=== PATIENT | female | born 1930 | race Caucasian/White ===

== ENCOUNTER 2017-02-14 20:26 | Emergency (ER) | payer MEDICARE, OTHER ==
[2017-02-14 20:34] VITALS: BP 158/92
--- NOTE | 2017-02-14 20:40 | ED Physician Documentation ---
PD HPI LOWER EXT INJURY - Stated complaint Stated Complaint: KNEE PX RIGHT - Chief complaint Chief Complaint: Ext Problem - History obtained from History obtained from: Patient - History of Present Illness PD HPI LOW EXT INJURY LOCATION: Right, Knee Type of injury: Fall (3 days ago, with some local pain and abrasion on right knee. Was only hurting a little. Then was sitting on computer desk today, with knee against a flat back part of the desk, and noted swelling of the knee. Now hurts more.) Timing - onset: How many days ago (3) Timing - details: Gradual onset Worsened by: Palpating Associated symptoms: Swelling (just today). No: Weakness, Numbness Similar symptoms before: Has not had sx before Review of Systems Constitutional: denies: Fever, Chills Skin: reports: Abrasion (s). denies: Laceration (s) Neurologic: denies: Focal weakness, Numbness PD PAST MEDICAL HISTORY - Past Medical History Cardiovascular: Hypertension Respiratory: Sleep apnea, CPAP use - Past Surgical History Past Surgical History: Yes Ortho: Shoulder arthroplasty - Present Medications Home Medications: Ambulatory Orders Medication Instructions Recorded Confirmed oxyCODONE [Roxicodone] 5 - 10 mg PO Q4-6H PRN #120 tablet 07/12/15 02/14/17 Clopidogrel [Plavix] 75 mg PO DAILY 02/14/17 02/14/17 Ferrous Gluconate 324 mg PO DAILY 02/14/17 02/14/17 Gabapentin 600 mg PO DAILY PM 02/14/17 02/14/17 Levothyroxine [Synthroid] 50 mcg PO DAILY 02/14/17 02/14/17 Lisinopril 10 mg PO DAILY 02/14/17 02/14/17 Magnesium 250 mg PO DAILY 02/14/17 02/14/17 [place]-3S/Dha/Epa/Fish Oil [Fish 1 each PO DAILY 02/14/17 02/14/17 Oil 1,200 mg Softgel] Potassium Chloride [Micro-K] 10 meq PO DAILY 02/14/17 02/14/17 Sertraline [Zoloft] 100 mg PO DAILY 02/14/17 02/14/17 amLODIPine [Norvasc] 2.5 mg PO ONCE 02/14/17 02/14/17 - Allergies Allergies/Adverse Reactions: Allergies Allergy/AdvReac Type Severity Reaction Status Date / Time dexamethasone Allergy Unknown Verified 02/14/17 20:54 levofloxacin [From Levaquin] Allergy Unknown Verified 02/14/17 20:54 - Social History Does the pt smoke?: No Smoking Status: Never smoker Does the pt drink ETOH?: No Does the pt have substance abuse?: No - Immunizations Immunizations are current?: Yes PD ED PE NORMAL - Vitals Vital signs reviewed: Yes - General General: Alert and oriented X 3, Well developed/nourished - Derm Derm: Normal color, Warm and dry - Extremities Extremities: Other (abrasion on infrapatellar area without purulence, redness, nor warmth. There is bursal effusion but good ROM of the knee including full extension. No knee joint effusion per se. ) - Neuro Neuro: No motor deficit, No sensory deficit Results - Vitals Vitals: Vital Signs - 24 hr 02/14/17 20:32 Temperature 37.0 C Heart Rate 81 Respiratory 18 Rate Blood Pressure 158/92 H O2 Saturation 98 Oxygen O2 Source Room air - Rads (name of study) knee Radiology: Prelim report reviewed, EMP read contemporaneously (arthritic changes ; no fracture) PD MEDICAL DECISION MAKING - ED course Complexity details: considered differential (some bursal effusion without redness nor warmth. She has abrasion on knee, but does not seem infected. did not see need for tapping it at this point. ), d/w patient Departure - Departure Disposition: 01 Home, Self Care Clinical Impression: Effusion of bursa of knee Qualifiers: Laterality: right Qualified Code(s): M25.461 - Effusion, right knee Knee contusion Qualifiers: Encounter type: initial encounter Laterality: right Qualified Code(s): S80.01XA - Contusion of right knee, initial encounter Condition: Stable Record reviewed to determine appropriate education?: Yes Instructions: ED Bursitis Follow-Up: Bimal Belcher MD [Primary Care Provider] - Comments: Ice to the area periodically. Tylenol 4 times daily for pain as needed. An ru wrap can help reduce the swelling some. The swelling in the bursa is from irritation and it goes down when the irritation improves. Mainly time for that. At this point it does not appear infection, but recheck if you are getting redness/warmth/drainage (a little bit of local redness just over the bursa may be expected but recheck if you get a lot). Discharge Date/Time: 02/14/17 22:05
[2017-02-14] MEDS ORDERED: IBUPROFEN 400 MG TABLET PO STA (20:54)
[2017-02-14] MEDS ORDERED: ACETAMINOPHEN 325 MG TABLET PO STA (20:54)
[2017-02-14] MEDS ORDERED: ACETAMINOPHEN 325 MG TABLET PO ONE (21:11)
--- NOTE | 2017-02-14 21:49 | XRAY Preliminary Report ---
Exam: XR Knee 3 View RT IMPRESSION: No acute right knee bony abnormality. Moderate patellofemoral compartment degenerative ch anges. Likely posttraumatic prepatellar bursitis. [facility] SITE ID: [id number]
--- NOTE | 2017-02-14 21:51 | XRAY Report ---
EXAM: RIGHT KNEE RADIOGRAPHY EXAM DATE: 02/14/2017 09:33 PM. CLINICAL HISTORY: Fell onto right knee, with local swelling bursa. COMPARISON: None. TECHNIQUE: 3 views. FINDINGS: Bones: Normal. No fractures or bone lesions. Joints: Moderate patellofemoral compartment narrowing with marginal spurring. No joint effusion. Soft Tissues: Prepatellar soft tissue swelling. IMPRESSION: No acute right knee bony abnormality. Moderate patellofemoral compartment degenerative ch anges. Likely posttraumatic prepatellar bursitis. [facility] Referring Provider Line: [phone] SITE ID: [id number]
== END 2017-02-14 22:05 | disposition home or self-care (01) ==
LOC: ED 20:26
DX: M25.461 Effusion, right knee (principal); S80.01XA Contusion of right knee, initial encounter; W19.XXXA Unspecified fall, initial encounter; I10 Essential (primary) hypertension
CPT/HCPCS: 73562; 99282; 99283; A9270

== ENCOUNTER 2017-02-18 19:27 | Emergency (ER) | payer MEDICARE, OTHER ==
--- NOTE | 2017-02-18 19:52 | ED Physician Documentation ---
PD HPI LOWER EXT INJURY - Stated complaint Stated Complaint: RT KNEE PX - Chief complaint Chief Complaint: Ext Problem - History obtained from History obtained from: Patient - History of Present Illness PD HPI LOW EXT INJURY LOCATION: Other (She scraped her right knee on the ground couple of weeks ago, she was seen here the other night and had negative x-rays except for degenerative changes. 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 HEENT: None Psych: Depression Musculoskeletal: Osteoporosis Derm: None - Past Surgical History Past Surgical History: Yes Ortho: Shoulder arthroplasty - Present Medications Home Medications: Ambulatory Orders Medication Instructions Recorded Confirmed oxyCODONE [Roxicodone] 5 - 10 mg PO Q4-6H PRN #120 tablet 07/12/15 02/18/17 Clopidogrel [Plavix] 75 mg PO DAILY 02/14/17 02/18/17 Ferrous Gluconate 324 mg PO DAILY 02/14/17 02/18/17 Gabapentin 600 mg PO DAILY PM 02/14/17 02/18/17 Levothyroxine [Synthroid] 50 mcg PO DAILY 02/14/17 02/18/17 Lisinopril 10 mg PO DAILY 02/14/17 02/18/17 Magnesium 250 mg PO DAILY 02/14/17 02/18/17 [place]-3S/Dha/Epa/Fish Oil [Fish 1 each PO DAILY 02/14/17 02/18/17 Oil 1,200 mg Softgel] Potassium Chloride [Micro-K] 10 meq PO DAILY 02/14/17 02/18/17 Sertraline [Zoloft] 100 mg PO DAILY 02/14/17 02/18/17 amLODIPine [Norvasc] 2.5 mg PO ONCE 02/14/17 02/18/17 Sulfamethoxazole/Trimethoprim 1 each PO BID 10 Days 02/18/17 [Sulfamethoxazole-Tmp Ds Tablet] - Allergies Allergies/Adverse Reactions: Allergies Allergy/AdvReac Type Severity Reaction Status Date / Time dexamethasone Allergy Unknown Verified 02/18/17 20:10 levofloxacin [From Levaquin] Allergy Unknown Verified 02/18/17 20:10 - Social History Does the pt smoke?: No Smoking Status: Never smoker Does the pt drink ETOH?: No Does the pt have substance abuse?: No - Immunizations Immunizations are current?: Yes PD ED PE NORMAL - Vitals Vital signs reviewed: Yes - General General: Alert and oriented X 3, No acute distress - Extremities Extremities: Other (The right knee has localized prepatellar bursitis with redness over the anterior part of the knee and a small scrape with an effusion of the prepatellar bursa but no limited range of motion.) - Neuro Neuro: Alert and oriented X 3, Normal speech - Psych Psych: Normal mood, Normal affect Results - Vitals Vitals: Vital Signs - 24 hr 02/18/17 02/18/17 19:39 20:21 Temperature 36.8 C 36.1 C L Heart Rate 82 83 Respiratory 20 20 Rate Blood Pressure 142/78 H 152/79 H O2 Saturation 94 94 Oxygen O2 Source Room air Procedures - Abscess I&D (location) Right prepatellar bursa Preparation: Betadine, Lidocaine 1%, With epi Incision: Incised with scalpel, Purulent drainage, Loculations broken, Packed ( with 1/4inch packing), Culture obtained Other: Pt tolerated well, Antibiotic prescribed Departure - Departure Disposition: 01 Home, Self Care Clinical Impression: Bursitis, prepatellar, right Condition: Good Record reviewed to determine appropriate education?: Yes Instructions: ED Abscess IandD Prescriptions: Sulfamethoxazole/Trimethoprim [Sulfamethoxazole-Tmp Ds Tablet] 1 each PO BID 10 Days Comments: Return here in 2 days for wound check and culture review. Sooner if worse or if running a fever. Your blood pressure was elevated today on check into the emergency department. This does not mean that you have hypertension, it is a common phenomenon to come to the emergency department and have elevated blood pressure. I recommend that she see her primary care physician within the week to have it rechecked when you are feeling better. Discharge Date/Time: 02/18/17 20:21
[2017-02-18] MEDS ORDERED: SULFAMETH/TRIMETH DS 800/160 MG TABLET PO STA (20:06)
[2017-02-18] MEDS ORDERED: SULFAMETH/TRIMETH DS 800/160 MG TABLET PO ONE (20:18)
[2017-02-18 20:28] VITALS: BP 152/79
== END 2017-02-18 20:21 | disposition home or self-care (01) ==
LOC: ED 19:27
DX: M70.41 Prepatellar bursitis, right knee (principal); I10 Essential (primary) hypertension; E03.9 Hypothyroidism, unspecified
CPT/HCPCS: 27301; 87070; 87205; 99282; 99283; A9270

== ENCOUNTER 2017-02-20 11:26 | Emergency (ER) | payer MEDICARE, OTHER ==
[2017-02-20 11:33] VITALS: BP 122/72
--- NOTE | 2017-02-20 12:28 | ED Physician Documentation ---
PD HPI WOUND RECHECK - Stated complaint Stated Complaint: R KNEE WOUND - Chief complaint Chief Complaint: General - Histroy obtained from History obtained from: Patient - History of Present Illness Location: Right Lower Extremity (anterior knee.) Timing - onset: How many days ago (seen last 2 days ago, but also seen few days prior to that. Had initial swelling/effusion of knee bursa without redness. Seen and Rx anti-inflammatories. Developed redness and swelling around front of knee. Seen 2 days ago with incision of the site, cloudy fluid out. On abx with lessening redness and swelling. Here as directed for recheck and culture result. ) Associated symptoms: Redness, Swelling, Drainage. 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 : None HEENT: None Psych: Depression Musculoskeletal: Osteoporosis Derm: None - Past Surgical History Past Surgical History: Yes Ortho: Shoulder arthroplasty - Present Medications Home Medications: Ambulatory Orders Medication Instructions Recorded Confirmed Clopidogrel [Plavix] 75 mg PO DAILY 02/14/17 02/20/17 Gabapentin 600 mg PO DAILY PM 02/14/17 02/20/17 Levothyroxine [Synthroid] 50 mcg PO DAILY 02/14/17 02/20/17 Lisinopril 10 mg PO DAILY 02/14/17 02/20/17 Magnesium 250 mg PO DAILY 02/14/17 02/20/17 [place]-3S/Dha/Epa/Fish Oil [Fish 1 each PO DAILY 02/14/17 02/20/17 Oil 1,200 mg Softgel] Potassium Chloride [Micro-K] 10 meq PO DAILY 02/14/17 02/20/17 Sertraline [Zoloft] 100 mg PO DAILY 02/14/17 02/20/17 Sulfamethoxazole/Trimethoprim 1 each PO BID 10 Days 02/18/17 02/20/17 [Sulfamethoxazole-Tmp Ds Tablet] - Allergies Allergies/Adverse Reactions: Allergies Allergy/AdvReac Type Severity Reaction Status Date / Time dexamethasone Allergy Unknown Verified 02/20/17 11:33 levofloxacin [From Levaquin] Allergy Unknown Verified 02/20/17 11:33 - Social History Does the pt smoke?: No Smoking Status: Never smoker Does the pt drink ETOH?: No Does the pt have substance abuse?: No - Immunizations Immunizations are current?: Yes PD ED PE NORMAL - Vitals Vital signs reviewed: Yes - General General: Alert and oriented X 3, No acute distress, Well developed/nourished - Derm Derm: Warm and dry, Other (right knee anteriorly with some redness anteriorly around bursa. She says it is reduced from 2 days ago. No effusion now and packing in place is mainly dry. Packing removed and dressing applied. ) Results - Vitals Vitals: Vital Signs - 24 hr 02/20/17 11:31 Temperature 36.5 C Heart Rate 85 Respiratory 14 Rate Blood Pressure 122/72 O2 Saturation 100 Oxygen O2 Source Room air PD MEDICAL DECISION MAKING - ED course Complexity details: reviewed results (culture result without growth at 2 days. So presume was inflammatory bursitis and now infectious. ) Departure - Departure Disposition: 01 Home, Self Care Clinical Impression: Bursitis, prepatellar, right, Change or removal of wound packing Condition: Stable Record reviewed to determine appropriate education?: Yes Instructions: ED Bursitis Comments: Mark wrap for the need to decrease swelling. The culture did not grow any bacteria so presumably just inflammatory. You could continue the sulfa antibiotic for a few more days just in case. Follow-up with her primary care in 3 or 4 days. Discharge Date/Time: 02/20/17 12:43
== END 2017-02-20 12:43 | disposition home or self-care (01) ==
LOC: ED 11:26
DX: M70.41 Prepatellar bursitis, right knee (principal); Z48.01 Encounter for change or removal of surgical wound dressing; I10 Essential (primary) hypertension; G47.30 Sleep apnea, unspecified; E03.9 Hypothyroidism, unspecified; M19.90 Unspecified osteoarthritis, unspecified site
CPT/HCPCS: 99283